=== PATIENT | female | born 1975 | race Caucasian/White ===

== ENCOUNTER 2021-03-24 02:16 | Emergency (ER) | payer BC ==
[~2021-03-24] VITALS: Ht 157.5 cm; Wt 130.6 kg
--- NOTE | 2021-03-24 02:38 | NUR ---
DR. GARCIA AT BEDSIDE FOR EVAL & TX.
[2021-03-24 02:40] VITALS: BP_SYST 143
--- NOTE | 2021-03-24 02:40 | NUR ---
Patient to [facility] for evaluation. Side rails up. Report given to SELVIN CORTEZ
[2021-03-24] MEDS ORDERED: NACL 0.9% 1,000 ML IV ONE (02:45)
[2021-03-24] MEDS ORDERED: cefTRIAXone 1 GM IVPB PREMIX 50 ML IV ONE (02:45)
[2021-03-24] MEDS ORDERED: ACETAMINOPHEN 500 MG TABLET PO ONE (02:45)
[2021-03-24] MEDS ORDERED: ONDANSETRON 4 MG ODT TAB PO ONE (03:00)
--- NOTE | 2021-03-24 03:30 | NUR ---
[facility], CBC, CMP, LACTIC ACID & 2 SETS OF BLOOD CULTURE SENT TO THE LAB.
[2021-03-24 04:18] LABS: HEMOGLOBIN 12.6 g/dL (12.0-16.0); LYMPHOCYTES # (AUTO) 0.5 K/uL (1.0-5.5); MONOCYTES # (AUTO) 0.2 K/uL (0.0-1.0)
[2021-03-24 04:23] LABS: BASOPHILS % (AUTO) 0.1 % (0.0-2.0); EOSINOPHILS % (AUTO) 0.2 % (0.0-4.0); HEMATOCRIT 38.6 % (36-48); LYMPHOCYTES % (AUTO) 7.7 % (20.5-51.5); MEAN CORPUSCULAR HEMOGLOBIN 26 pg (27-31); MEAN CORPUSCULAR HGB CONC 33 % (32-36); MEAN CORPUSCULAR VOLUME 81 fL (79.0-98.0); MONOCYTES % (AUTO) 3.9 % (1.7-9.3); NEUTROPHILS # (AUTO) 5.5 K/uL (1.8-7.7); NEUTROPHILS % (AUTO) 88.1 % (40.0-70.0); PLATELET COUNT (AUTO) 166 K/uL (130-430); RED BLOOD CELL COUNT(AUTO) 4.79 MIL/uL (4.2-6.2); RED CELL DISTRIBUTION WIDTH 14.5 % (9.0-15.0); WHITE BLOOD COUNT (AUTO) 6.3 K/uL (4.8-10.8)
[2021-03-24 04:25] LABS: CALCIUM 8.5 mg/dL (8.4-11.0); CREATININE 0.72 mg/dL (0.55-1.30); POTASSIUM 3.8 mmol/L (3.5-5.1)
[2021-03-24 04:31] LABS: ALBUMIN 3.3 g/dL (3.4-4.8); TOTAL BILIRUBIN 0.2 mg/dL (0.0-1.0)
[2021-03-24 04:37] LABS: BILIRUBIN,URINE NEGATIVE (NEGATIVE); BLOOD, URINE 1+ (NEGATIVE); CLARITY/URINE CLEAR (CLEAR); COLOR,URINE YELLOW (YELLOW); GLUCOSE,URINE NEGATIVE (NEGATIVE); KETONES,URINE TRACE (NEGATIVE); LEUKOCYTE ESTERASE ,URINE NEGATIVE (NEGATIVE); NITRITE, URINE NEGATIVE (NEGATIVE); PH,URINE 5.5 (5.0-8.0); PROTEIN URINE NEGATIVE (NEGATIVE); UROBILINOGEN,URINE 0.2 (0.2-1.0)
[2021-03-24 04:50] LABS: BACTERIA,URINE RARE /HPF (None Seen); HYALINE CASTS, URINE 0-10 /LPF (None Seen); MUCUS,URINE 1+ /LPF (None Seen)
--- NOTE | 2021-03-24 05:25 | NUR ---
0522 - VAGINAL EXAM DONE WITH DR. GARCIA IN [id number] - WET PREP SWAB SENT TO LABS.
[2021-03-24] MEDS ORDERED: AZITHROMYCIN 250 MG TABLET PO ONE (05:30)
[2021-03-24] MEDS ORDERED: NITR-85 PO (05:44)
[2021-03-24] MEDS ORDERED: DOXY100C5 PO (05:44)
--- NOTE | 2021-03-24 05:55 | NUR ---
DR. GARCIA AT BEDSIDE FOR EDUCATION & D/C.
[2021-03-24 06:12] VITALS: BP_SYST 109
== END 2021-03-24 06:12 | disposition home or self-care (01) ==
LOC: SED 02:16
DX: N34.2 Other urethritis (principal); Z79.899 Other long term (current) drug therapy
CPT/HCPCS: 36415; 80053; 81000; 81025; 83605; 85025; 87040; 87086; 96365; 99284; J0696; Q0144; Q0162; 87491; 87591